=== PATIENT | male | born 1975 | race Caucasian/White ===

== ENCOUNTER 2016-08-06 12:38 | Emergency (ER) | payer MEDICAID ==
[2016-08-06 12:48] VITALS: BP 109/79
--- NOTE | 2016-08-06 14:15 | ED ---
Skin Complaint - History of Current Complaint Chief Complaint: EDGeneral Time Seen by Provider: 08/06/16 13:03 Stated Complaint: ABD PAIN Pain Intensity: 4 - Allergy/Home Medications Allergies/Adverse Reactions: Allergies Allergy/AdvReac Type Severity Reaction Status Date / Time seafood Allergy Unknown Anaphylatic Uncoded 09/23/15 18:22 Shock olives Allergy Anaphylatic Uncoded 09/23/15 18:22 Shock PMH/Surg Hx/FS Hx/Imm Hx Infectious Disease History: No Infectious Disease History: Denies: Traveled Outside the [place] in Last 30 Days - Family History Family History: pt is adopted bio family history is unknown - Social History Alcohol Use: Rare Substance Use Type: Reports: Marijuana Substance Use Comment - Amount & Last Used: daily marijuana Hx Tobacco Use: No Smoking Status (MU): Never Smoked Tobacco Have You Smoked in the Last Year: No Physical Exam Vital Signs On Initial Exam: Initial Vitals Temp 97.8 F 08/06/16 12:45 Diagnostics - Vital Signs Vital Signs Temp Pulse Resp BP Pulse Ox 08/06/16 12:47 97.6 F 68 20 109/79 97 08/06/16 12:45 97.8 F - Laboratory Lab Statement: Any lab studies that have been ordered have been reviewed, and results considered in the medical decision making process. Course/Dx - Diagnoses Provider Diagnoses: Cellulitis of umbilicus Discharge - Discharge Plan Condition: Stable Disposition: HOME Prescriptions: Cephalexin CAP* [Keflex CAP*] 500 mg PO TID #21 cap Triamcinolone 0.1% OINT(NF) [Kenalog 0.1% OINT(NF)] 1 applic .SEE ORDER BID #1 applic Referrals: No Primary Care Phys,NOPCP [Primary Care Provider] - [facility] [Outside] Additional Instructions: Take prescribed medication as directed until entire dose is finished. Apply topical cream twice daily while symptoms persist. Recommend taking probiotics or yakut yogurt to replenish normal rebeca. Keep an eye on are to ensure improvement and that is not worsening. Keep clean and dry and do on touch the area. If worsens please return immediately. Follow up with PCP.
== END 2016-08-06 14:48 | disposition home or self-care (01) ==
LOC: ED 12:38
DX: L03.316 Cellulitis of umbilicus (principal)
CPT/HCPCS: 99281

== ENCOUNTER 2016-08-09 19:09 | Emergency (ER) | payer MEDICAID ==
[2016-08-09] MEDS ORDERED: Clindamycin 600 MG IVPREMIX(* 600 MG in PREMIX* 0 ML IV ONE (19:51)
[2016-08-09] MEDS ORDERED: NS 0.9% 1000 ML* 1,000 ML IV ONE (19:51)
[2016-08-09] MEDS ORDERED: Ondansetron INJ* 2 MG/ML VIAL IV ONE (19:52)
[2016-08-09 19:57] LABS: Hematocrit 42 % (42-52); Hemoglobin 14.2 g/dl (14.0-18.0); Mean Corpuscular HGB Conc 34 g/dl (31-36); Mean Corpuscular Hemoglobin 31 pg (27-31); Mean Corpuscular Volume 92 fL (80-94); Mean Platelet Volume 10 um3 (7.4-10.4); Red Blood Count 4.56 10^6/ul (4.0-5.4); Red Cell Distribution Width 14 % (10.5-15); White Blood Count 6.3 10^3/ul (3.5-10.8)
[2016-08-09 20:11] LABS: Albumin 4.3 g/dL (3.2-5.2); BUN/Creatinine Ratio 16.3 (8-20); C Reactive Protein 6.72 mg/L (< 5.00); Calcium 9.3 mg/dL (8.6-10.3); EGFR African American 108.4 (>60); EGFR Non-African American 84.3 (>60); Globulin 2.7 g/dL (2-4); Potassium 3.9 mmol/L (3.5-5.0); Total Bilirubin 0.4 mg/dL (0.2-1.0)
[2016-08-09] MEDS ORDERED: DOXYcycline CAP(*) 100 MG PO ONE (20:46)
--- NOTE | 2016-08-09 20:52 | ED ---
Gisella Mercado Alok, scribed for Lilli Briggs MD on 08/09/16 at 2016 . Skin Complaint - HPI Summary HPI Summary: 40M presents to the ED with erythema and swelling at the umbilicus for the past 7 days. Pt states that one began as a hard spot within the umbilicus progressed into a large area around his abd. Pt was last seen at the ED 4 days ago and discharged with a rx for Keflex antibiotics, though his rash has still been worsening since. Pt has been taking ibuprofen which has improved his pain and reduced swelling. Pt also notes nausea today since 1300. Pt also notes fatigue for the past few days. Pt denies fever, abd pain, or drainage from his rash. - History of Current Complaint Chief Complaint: EDRashSkinAbscess Time Seen by Provider: 08/09/16 19:26 Stated Complaint: SKIN COMPLAINT Hx Obtained From: Patient Onset/Duration: Started Days Ago, Atraumatic, Still Present Timing: Constant Onset Severity: Moderate Current Severity: Moderate Pain Intensity: 5 Pain Scale Used: 0-10 Numeric Skin Location: Abdomen Character: Swelling, Pain, Redness Aggravating Symptom(s): Nothing Alleviating Symptom(s): OTC Meds - ibuprofen Associated Signs & Symptoms: Nausea, Rash - Allergy/Home Medications Allergies/Adverse Reactions: Allergies Allergy/AdvReac Type Severity Reaction Status Date / Time seafood Allergy Unknown Anaphylatic Uncoded 08/09/16 19:18 Shock olives Allergy Anaphylatic Uncoded 08/09/16 19:18 Shock PMH/Surg Hx/FS Hx/Imm Hx Infectious Disease History: No Infectious Disease History: Denies: Traveled Outside the [place] in Last 30 Days - Family History Known Family History: Positive: Unknown - Pt is adopted Family History: pt is adopted bio family history is unknown - Social History Occupation: Employed Full-time Alcohol Use: Rare Substance Use Type: Reports: Marijuana Substance Use Comment - Amount & Last Used: daily marijuana Hx Tobacco Use: No Smoking Status (MU): Never Smoked Tobacco Have You Smoked in the Last Year: No Review of Systems Negative: Fever Positive: Nausea. Negative: Abdominal Pain Positive: Rash All Other Systems Reviewed And Are Negative: Yes Physical Exam Triage Information Reviewed: Yes Vital Signs On Initial Exam: Initial Vitals Temp Pulse Resp BP Pulse Ox 98.3 F 67 18 130/79 98 08/09/16 19:21 08/09/16 19:21 08/09/16 19:21 08/09/16 19:21 08/09/16 19:21 Vital Signs Reviewed: Yes Appearance: Positive: Well-Appearing, No Pain Distress Skin: Positive: Other - 6 cm in diameter area of erythema surrounding umbilicus. Within umbilicus right side area of induration without fluctuant. Eyes: Positive: EOMI, [place] ENT: Positive: Pharynx normal, TMs normal Neck: Positive: Supple, Nontender Respiratory/Lung Sounds: Positive: Clear to Auscultation, Breath Sounds Present. Negative: Rales, Rhonchi, Wheezes Cardiovascular: Positive: RRR, Other - no gallop. Negative: Murmur, Rub Abdomen Description: Positive: Nontender, Soft, Other: - no rebound. Negative: Distended, Guarding Bowel Sounds: Positive: Present Musculoskeletal: Positive: Strength/ROM Intact. Negative: Edema Left, Edema Right Neurological: Positive: Sensory/Motor Intact, Alert, Oriented to Person Place, Time, CN Intact II-III Psychiatric: Positive: Affect/Mood Appropriate Diagnostics - Vital Signs Vital Signs Temp Pulse Resp BP Pulse Ox 08/09/16 19:21 98.3 F 67 18 130/79 98 - Laboratory Lab Results: Lab Results 08/09/16 Range/Units 19:45 WBC 6.3 (3.5-10.8) 10^3/ul RBC 4.56 (4.0-5.4) 10^6/ul Hgb 14.2 (14.0-18.0) g/dl Hct 42 (42-52) % MCV 92 (80-94) fL MCH 31 (27-31) pg MCHC 34 (31-36) g/dl RDW 14 (10.5-15) % Plt Count 145 L (150-450) 10^3/ul MPV 10 (7.4-10.4) um3 Neut % (Auto) 52.7 (38-83) % Lymph % (Auto) 36.2 (25-47) % [place] % (Auto) 9.6 H (1-9) % Eos % (Auto) 0.8 (0-6) % Baso % (Auto) 0.7 (0-2) % Absolute Neuts (auto) 3.3 (1.5-7.7) 10^3/ul Absolute Lymphs (auto) 2.3 (1.0-4.8) 10^3/ul Absolute Monos (auto) 0.6 (0-0.8) 10^3/ul Absolute Eos (auto) 0.1 (0-0.6) 10^3/ul Absolute Basos (auto) 0 (0-0.2) 10^3/ul Absolute Nucleated RBC 0 10^3/ul Nucleated RBC % 0 Result Diagrams: 08/09/16 19:45 08/09/16 19:45 Lab Statement: Any lab studies that have been ordered have been reviewed, and results considered in the medical decision making process. Course/Dx - Course Course Of Treatment: 40 yo male with 7 days of oomphalitis- slight induration over right side of umbilicus no drainage, no abdominal tenderness. pt wa s alittle nauseas today and was given keflex a few days ago not getting better, labs look good changed meds to cover mrsa f/u with gen surgery - Diagnoses Provider Diagnoses: Omphalitis Discharge - Discharge Plan Condition: Stable Disposition: HOME Prescriptions: DOXYcycline CAP(*) [DOXYcycline 100MG CAP(*)] 100 mg PO BID #13 cap The documentation as recorded by the Gisella valdez Alok accurately reflects the service I personally performed and the decisions made by me, Lilli Briggs MD.
[2016-08-09 21:36] VITALS: BP 117/78
== END 2016-08-09 21:45 | disposition home or self-care (01) ==
LOC: ED 19:09
DX: L08.82 Omphalitis not of newborn (principal); R11.0 Nausea; R21 Rash and other nonspecific skin eruption
CPT/HCPCS: 36415; 80053; 85025; 86140; 96374; 99282; A9270-GY; J2405

== ENCOUNTER 2017-08-08 21:43 | Emergency (ER) | payer MEDICAID ==
[2017-08-08 21:55] VITALS: BP 109/67
[2017-08-08] MEDS ORDERED: Lidocaine 1%* 5 ML VIAL INJ ONE (22:01)
--- NOTE | 2017-08-08 22:04 | UC ---
Laceration HPI - HPI Summary HPI Summary: SUSTAINED A LACERATION FROM THE SERRATED EDGE OF A SARAN WRAP BOX IN THE FIRST INTERDIGITAL WEBSPACE OF HIS RIGHT HAND ABOUT AN HOUR CLIENT INSIGHTS CONSULTANT. TDAP BOOSTED . - History Of Current Complaint Chief Complaint: UCLaceration Stated Complaint: R HAND LAC Time Seen by Provider: 08/08/17 21:46 Hx Obtained From: Patient Laceration Location: Hand - RIGHT Mechanism Of Injury: Sharp Trauma Onset/Duration: Sudden Onset, Lasting Hours Severity: Moderate Pain Intensity: 2 Pain Scale Used: 0-10 Numeric Aggravating Factors: Movement Related History: Dominant Hand Right - Allergies/Home Medications Allergies/Adverse Reactions: Allergies Allergy/AdvReac Type Severity Reaction Status Date / Time seafood Allergy Unknown Anaphylatic Uncoded 08/08/17 21:56 Shock olives Allergy Anaphylatic Uncoded 08/08/17 21:56 Shock PMH/Surg Hx/FS Hx/Imm Hx Previously Healthy: Yes - Surgical History Surgical History: None - Family History Known Family History: Positive: Unknown - Pt is adopted Family History: pt is adopted bio family history is unknown - Social History Alcohol Use: Rare Substance Use Type: Marijuana Substance Use Comment - Amount & Last Used: daily marijuana Smoking Status (MU): Never Smoked Tobacco Have You Smoked in the Last Year: No Review of Systems Constitutional: Negative Skin: Other - LACERATION Respiratory: Negative Cardiovascular: Negative Gastrointestinal: Negative All Other Systems Reviewed And Are Negative: Yes Physical Exam Triage Information Reviewed: Yes Appearance: Well-Appearing, No Pain Distress, Well-Nourished Vital Signs: Initial Vital Signs Temp 98.1 F 08/08/17 21:51 Pulse 65 08/08/17 21:51 Resp 16 08/08/17 21:51 BP 109/67 08/08/17 21:51 Pulse Ox 98 08/08/17 21:51 Vital Signs Reviewed: Yes Eyes: Positive: Conjunctiva Clear ENT: Positive: Hearing grossly normal Neck: Positive: Supple Respiratory: Positive: No respiratory distress, No accessory muscle use Cardiovascular: Positive: Pulses Normal Abdomen Description: Positive: Soft Musculoskeletal: Positive: ROM Intact, No Edema Neurological: Positive: Alert Psychological: Positive: Age Appropriate Behavior Skin: Positive: Other - 1.5CM FLAP-LIKE LACERATION RIGHT HAND FIRST INTERDIGITAL WEBSPACE Laceration Repair - Laceration Repair 1 Description: Linear Laceration Size After Repair: Length (cm) - 1.5CM, Width (mm) - 0MM, Depth (mm) - 2MM Modified For Repair: No Type Injection: Local Anesthesia Used: 1.0% Lido Irrigation With Pressure Irrigation Device: Yes Closure Material: Sutures - 4 SIMPLE INTERRUPTED Closure Method: Single Layer Suture Of: Skin Suture Type: Prolene - 5-0 Laceration Course/Dx - Differential Dx - Laceration/Wound Provider Diagnoses: 1. LACERATION REPAIR RIGHT HAND. 2. TDAP BOOSTER Discharge - Sign-Out/Discharge Documenting (check all that apply): Discharge/Admit/Transfer - Discharge Plan Condition: Stable Disposition: HOME Patient Education Materials: Laceration (ED) Referrals: No Primary Care Phys,NOPCP [Primary Care Provider] - Additional Instructions: KEEP DRESSINGS IN PLACE AND DRY FOR THE FIRST 24 HRS. THEN YOU MAY REMOVE THE DRESSING AND GENTLY CLEANSE WITH SOAP AND WATER. PAT DRY AND RE-BANDAGE. APPLY THIN LAYER ANTIBIOTIC OINTMENT UNDER BANDAGE FOR FIRST 3-4 DAYS ONLY. CHANGE BANDAGE DAILY AND NEEDED IF IT BECOMES SOILED OR WET. SEEK FOLLOW-UP IF YOU DEVELOP SPREADING REDNESS OF THE SKIN, PURULENT DRAINAGE, FEVER, INCREASED PAIN OR ANY OTHER CONCERNING SYMPTOMS. RETURN TO HAVE YOUR SUTURES REMOVED IN 10 DAYS AVOID PROLONGED EXPOSURE TO WATER. NO GRIPPING, TWISTING OR HEAVY LIFTING WITH THE RIGHT HAND. TETANUS IMMUNIZATION GIVEN (TDAP): You have been given an immunization against tetanus. Please record this in your records. In general, a booster is needed only once every 10 years. The tetanus shot protects against tetanus or "lockjaw," which is a complication of certain wound infections (the tetanus shot cannot protect against the actual infection). The immunization site may become warm and red due to local reaction. If this occurs, apply warm compresses and take aspirin or ibuprofen to reduce inflammation and discomfort. Return for evaluation if the reaction becomes severe. CALL THE NUMBER BELOW FOR ASSISTANCE IN ESTABLISHING WITH A PCP An additional resource available to assist in finding the appropriate physician for your health care needs is the [facility] ([facility]). You may contact them by calling [phone]. - Billing Disposition and Condition Condition: STABLE Disposition: Home
[2017-08-08] MEDS ORDERED: Tetan/Diph/Pertus SYR(Tdap)* 0.5 ML SYR(BOOSTRIX) use SYR IM ONE (22:08)
== END 2017-08-08 22:40 | disposition home or self-care (01) ==
LOC: UCEAST 21:43
DX: S61.411A Laceration without foreign body of right hand, initial encounter (principal); W26.8XXA Contact with other sharp object(s), not elsewhere classified, initial encounter; Y93.9 Activity, unspecified; Y92.9 Unspecified place or not applicable; Z23 Encounter for immunization; Z91.013 Allergy to seafood; Z91.018 Allergy to other foods
CPT/HCPCS: 12001; 90471; 90715; 99211; G0463

== ENCOUNTER 2017-08-21 20:54 | Emergency (ER) | payer MEDICAID ==
[2017-08-21 21:01] VITALS: BP 117/77
--- NOTE | 2017-08-21 21:08 | UC ---
Laceration HPI - HPI Summary HPI Summary: 41 yo male presents for suture removal. He had 4 sutures placed on 08/08 in his right hand. He has had no issues. Appears well healed. - History Of Current Complaint Chief Complaint: UCWounds Stated Complaint: STITCHES REMOVAL R HAND Time Seen by Provider: 08/21/17 20:59 Hx Obtained From: Patient Laceration Location: Finger Mechanism Of Injury: Sharp Trauma Onset/Duration: Sudden Onset Severity: Mild Pain Intensity: 2 Pain Scale Used: 0-10 Numeric - Allergies/Home Medications Allergies/Adverse Reactions: Allergies Allergy/AdvReac Type Severity Reaction Status Date / Time seafood Allergy Unknown Anaphylatic Uncoded 08/21/17 21:01 Shock olives Allergy Anaphylatic Uncoded 08/21/17 21:01 Shock Home Medications: Home Medications NK [No Home Medications Reported] 08/21/17 [History Confirmed 08/21/17] PMH/Surg Hx/FS Hx/Imm Hx - Additional Past Medical History Additional PMH: None Previously Healthy: Yes - Surgical History Surgical History: None - Family History Known Family History: Positive: Unknown - Pt is adopted Family History: pt is adopted bio family history is unknown - Social History Occupation: Employed Full-time Lives: With Family Alcohol Use: Rare Substance Use Type: Marijuana Substance Use Comment - Amount & Last Used: daily marijuana Smoking Status (MU): Never Smoked Tobacco Have You Smoked in the Last Year: No Review of Systems Constitutional: Negative Skin: Other - Right hand with 4 sutures in placed. Well healed lac Respiratory: Negative Cardiovascular: Negative Neurovascular: Negative Neurological: Negative Psychological: Negative All Other Systems Reviewed And Are Negative: Yes Physical Exam - Summary Physical Exam Summary: GENERAL: NAD. WDWN. No pain distress. SKIN: right hand: web space between 1st and 2nd digit with [address] Lac is well healed and excellently approximated. No erythema or edema. No streaking, bleeding, or drainage. NECK: Supple. Nontender. No lymphadenopathy. CHEST: No accessory muscle use. Breathing comfortably and in no distress. CV: Pulses intact. MSK: Right hand and all fingers FROM. NEURO: Alert. CN II-XII grossly intact. PSYCH: Age appropriate behavior. Triage Information Reviewed: Yes Vital Signs: Initial Vital Signs Temp 98.1 F 08/21/17 20:58 Pulse 58 06/30/18 20:58 Resp 16 08/21/17 20:58 BP 117/77 08/21/17 20:58 Pulse Ox 97 08/21/17 20:58 Laceration Course/Dx - Course/Dx Course Of Treatment: Four sutures removed without issue. Pt tolerated well - Differential Dx - Laceration/Wound Provider Diagnoses: Suture removal Discharge - Sign-Out/Discharge Documenting (check all that apply): Discharge/Admit/Transfer - Discharge Plan Condition: Stable Disposition: HOME Patient Education Materials: Stitches Removal (ED) Referrals: No Primary Care Phys,NOPCP [Primary Care Provider] - Additional Instructions: If you develop a fever, shortness of breath, chest pain, new or worsening symptoms - please call your PCP or go to the ED. - Billing Disposition and Condition Condition: STABLE Disposition: Home
== END 2017-08-21 21:15 | disposition home or self-care (01) ==
LOC: UCEAST 20:54
DX: Z48.02 Encounter for removal of sutures (principal)